=== PATIENT | male | born 1930 | race Caucasian/White ===

== ENCOUNTER → 2016-08-26 | Outpatient (CLI) | payer OTHER ==
[~2016-08-26] MED LIST: AMLO5TAB2 PO; ASPI325T25 PO; ATOR20TA PO; CARV6.2551 PO; DILT120C65 PO; HYDR-2652 PO; OMEP20CA5 PO
[2016-08-26 12:13] LABS: Albumin 3.9 g/dL (3.4-5.0); BUN/Creatinine Ratio 12.1; Calcium 9.4 mg/dL (8.5-10.1); Phosphorus 3.4 mg/dL (2.5-4.90); Potassium 4.9 mmol/L (3.5-5.1); Uric Acid 6.7 mg/dL (3.5-7.2)
[2016-08-26 12:24] LABS: Basophils # (auto) 0.1 uL; Basophils % (auto) 1.3 % (0.0-2.0); Eosinophils # (auto) 0.3 uL; Eosinophils % (auto) 6.2 % (0.0-7.0); Hemoglobin 9.7 g/dL (13.5-17.5); Lymphocytes # (auto) 1.4 uL; Lymphocytes % (auto) 28.3 % (10.0-50.0); Mean Corpuscular Hemoglobin 30.9 pg (28.0-32.0); Mean Corpuscular Hgb Conc. 33.4 g/dL (32.0-36.0); Mean Corpuscular Volume 92.6 fL (80.0-100.0); Mean Platelet Volume 8.2 fL (7.4-10.4); Monocytes # (auto) 0.5 uL; Monocytes % (auto) 10.7 % (0.0-12.0); Neutrophils # (auto) 2.6 uL; Neutrophils % (auto) 53.5 % (37.0-80.0); Platelet Count (auto) 252 10^3/uL (140-450); White Blood Cell 4.8 10^3/uL (4.4-10.8)
[2016-08-26 12:27] LABS: Urine Protein/Creatinine Ratio 2.11
[2016-08-26 13:08] LABS: Urine Bilirubin Negative (Negative); Urine Blood Negative /uL (Negative); Urine Color Yellow (Yellow); Urine Glucose Normal (Normal); Urine Ketone Negative (Negative); Urine Nitrite Negative (Negative); Urine RBC <1 /hpf (0 - 3); Urine Squamous Epithelial Cell FEW /hpf (<5); Urine Urobilinogen Normal (Negative)
== END | disposition home or self-care (01) ==
LOC: LAB 11:22
PROVIDERS: ATTEND Internal Medicine Nephrology
DX: N18.3 Chronic kidney disease, stage 3 (moderate) (principal); D63.1 Anemia in chronic kidney disease; E43 Unspecified severe protein-calorie malnutrition; E78.5 Hyperlipidemia, unspecified; M10.9 Gout, unspecified; R80.9 Proteinuria, unspecified; E55.9 Vitamin D deficiency, unspecified
CPT/HCPCS: 36415; 80069; 81001; 82306; 82570; 83970; 84156; 84550; 85025

== ENCOUNTER → 2016-09-29 | Outpatient (CLI) | payer OTHER ==
[2016-09-29 07:56] LABS: Basophils # (auto) 0.1 uL; Basophils % (auto) 1.3 % (0.0-2.0); Eosinophils # (auto) 0.4 uL; Eosinophils % (auto) 8.5 % (0.0-7.0); Hematocrit 29.9 % (41.0-53.0); Hemoglobin 9.9 g/dL (13.5-17.5); Lymphocytes # (auto) 1.5 uL; Lymphocytes % (auto) 31.7 % (10.0-50.0); Mean Corpuscular Hemoglobin 30.8 pg (28.0-32.0); Mean Corpuscular Hgb Conc. 33.2 g/dL (32.0-36.0); Mean Corpuscular Volume 92.6 fL (80.0-100.0); Mean Platelet Volume 7.7 fL (7.4-10.4); Monocytes # (auto) 0.5 uL; Monocytes % (auto) 10.3 % (0.0-12.0); Neutrophils # (auto) 2.3 uL; Neutrophils % (auto) 48.2 % (37.0-80.0); Platelet Count (auto) 254 10^3/uL (140-450); Red Cell Distribution Width 15.1 % (11.6-16.0); White Blood Cell 4.7 10^3/uL (4.4-10.8)
[2016-09-29 08:16] LABS: Albumin 4.1 g/dL (3.4-5.0); BUN/Creatinine Ratio 13.7; Calcium 8.8 mg/dL (8.5-10.1); Phosphorus 3.5 mg/dL (2.5-4.90); Potassium 4.5 mmol/L (3.5-5.1)
[2016-09-29 08:28] LABS: Urine Bilirubin Negative (Negative); Urine Blood TRACE /uL (Negative); Urine Color Yellow (Yellow); Urine Glucose Normal (Normal); Urine Ketone Negative (Negative); Urine Nitrite Negative (Negative); Urine RBC 3 /hpf (0 - 3); Urine Squamous Epithelial Cell FEW /hpf (<5); Urine Urobilinogen Normal (Negative)
[2016-09-29 08:39] LABS: Urine Protein/Creatinine Ratio 2.02
== END | disposition home or self-care (01) ==
LOC: LAB 07:30
PROVIDERS: ATTEND Internal Medicine Nephrology
DX: N18.4 Chronic kidney disease, stage 4 (severe) (principal); D63.1 Anemia in chronic kidney disease; E21.3 Hyperparathyroidism, unspecified; E78.5 Hyperlipidemia, unspecified; M10.9 Gout, unspecified; R80.9 Proteinuria, unspecified; E55.9 Vitamin D deficiency, unspecified
CPT/HCPCS: 36415; 80069; 81001; 82306; 82570; 83970; 84156; 84550; 85025

== ENCOUNTER 2016-11-15 23:56 | Inpatient (IN) | payer OTHER ==
[~2016-11-15] VITALS: Ht 175.3 cm; Wt 79.3 kg
[~2016-11-15 23:56] MED LIST changes: -OMEP20CA5 PO; +OMEP20CA74 PO
[2016-11-16] VITALS (10 sets, daily range): BP systolic 70–164; BP diastolic 69–132
[2016-11-16 00:53] LABS: Basophils # (auto) 0.1 uL; Eosinophils # (auto) 0.3 uL; Eosinophils % (auto) 5.7 % (0.0-7.0); Hematocrit 26.6 % (41.0-53.0); Hemoglobin 8.8 g/dL (13.5-17.5); Lymphocytes % (auto) 17.3 % (10.0-50.0); Mean Corpuscular Hemoglobin 30.8 pg (28.0-32.0); Mean Corpuscular Hgb Conc. 33.1 g/dL (32.0-36.0); Mean Corpuscular Volume 93.1 fL (80.0-100.0); Mean Platelet Volume 7.6 fL (7.4-10.4); Monocytes # (auto) 0.4 uL; Monocytes % (auto) 7.8 % (0.0-12.0); Neutrophils # (auto) 3.8 uL; Neutrophils % (auto) 68.2 % (37.0-80.0); Platelet Count (auto) 191 10^3/uL (140-450); Red Cell Distribution Width 14.1 % (11.6-16.0); White Blood Cell 5.6 10^3/uL (4.4-10.8)
[2016-11-16 01:02] LABS: Albumin 3.3 g/dL (3.4-5.0); BUN/Creatinine Ratio 13.7; Calcium 8.2 mg/dL (8.5-10.1); Potassium 4.3 mmol/L (3.5-5.1)
[2016-11-16 01:12] LABS: Bilirubin, Total 0.2 mg/dL (0.2-1.0); Total Protein 6.9 g/dL (6.4-8.2)
[2016-11-16] MEDS ORDERED: MORPHINE SULFATE 4 MG/ML SYRG IV ONE (02:45)
[2016-11-16] MEDS ORDERED: ONDANSETRON HCL 4 MG/2 ML VIAL IV ONE (02:45)
[2016-11-16] MEDS ORDERED: CYCLOBENZAPRINE HCL 10 MG TAB PO ONE (03:45)
[2016-11-16] MEDS ORDERED: SODIUM CHLORIDE 0.9% 1,000 ML IV SCH (04:12)
[2016-11-16] MEDS ORDERED: MORPHINE SULF INJ 2 MG/ML SYRINGE 1ML IV PRN (04:15)
[2016-11-16] MEDS ORDERED: ONDANSETRON HCL 4 MG/2 ML VIAL IV PRN (04:15)
[2016-11-16] MEDS ORDERED: NITROGLYCERIN 0.4 MG SL TAB SL PRN (04:15)
[2016-11-16] MEDS: hydrALAZINE HCL 25 MG TAB PO SCH ×3 (07:08→21:54)
[2016-11-16] MEDS: MORPHINE SULF INJ 2 MG/ML SYRINGE 1ML IV PRN ×3 (07:09→22:39)
[2016-11-16] MEDS ORDERED: OMEPRAZOLE 20MG/10ML ORAL SUSP PO SCH (10:00)
[2016-11-16] MEDS: CARVEDILOL 3.125 MG TAB PO SCH ×2 (10:38→21:55)
[2016-11-16] MEDS: PANTOPRAZOLE 40 MG TAB PO SCH (10:38)
[2016-11-16] MEDS: amLODIPine BESYLATE 5 MG TAB PO SCH (10:38)
[2016-11-16] MEDS: ASPirin-EC 325mg tab PO SCH (10:39)
[2016-11-16] MEDS: DILTIAZEM HCL 120MG ER CAP PO SCH (10:39)
[2016-11-16] MEDS: ATORVASTATIN 20 MG TAB PO SCH (10:39)
[2016-11-16 13:47] LABS: INR 1.04 (0.9-1.15); Prothrombin Time 11.3 sec (9.37-12.3)
[2016-11-17] MEDS: SODIUM CHLORIDE 0.9% 1,000 ML IV SCH (04:12)
[2016-11-17 05:30] VITALS: BP 157/74
[2016-11-17 06:25] LABS: Basophils # (auto) 0 uL; Basophils % (auto) 0.6 % (0.0-2.0); Eosinophils # (auto) 0.5 uL; Hematocrit 32.3 % (41.0-53.0); Hemoglobin 10.9 g/dL (13.5-17.5); Lymphocytes # (auto) 0.6 uL; Lymphocytes % (auto) 7.4 % (10.0-50.0); Mean Corpuscular Hemoglobin 31.1 pg (28.0-32.0); Mean Corpuscular Hgb Conc. 33.7 g/dL (32.0-36.0); Mean Corpuscular Volume 92.3 fL (80.0-100.0); Mean Platelet Volume 8.5 fL (7.4-10.4); Monocytes # (auto) 0.6 uL; Monocytes % (auto) 6.9 % (0.0-12.0); Neutrophils # (auto) 6.4 uL; Neutrophils % (auto) 79.1 % (37.0-80.0); Platelet Count (auto) 181 10^3/uL (140-450); Red Cell Distribution Width 15.8 % (11.6-16.0)
[2016-11-17] MEDS: hydrALAZINE HCL 25 MG TAB PO SCH ×3 (06:25→22:02)
[2016-11-17 06:44] LABS: BUN/Creatinine Ratio 13.9; Calcium 8.5 mg/dL (8.5-10.1); Magnesium 2.1 mg/dL (1.6-2.6); Potassium 4.4 mmol/L (3.5-5.1)
[2016-11-17 09:00] VITALS: BP 165/89
[2016-11-17 09:06] LABS: Urine Bilirubin Negative (Negative); Urine Blood Negative /uL (Negative); Urine Color Yellow (Yellow); Urine Glucose Normal (Normal); Urine Ketone Negative (Negative); Urine Nitrite Negative (Negative); Urine RBC <1 /hpf (0 - 3); Urine Squamous Epithelial Cell FEW /hpf (<5); Urine Urobilinogen Normal (Negative)
[2016-11-17] MEDS: ASPirin-EC 325mg tab PO SCH (10:00)
[2016-11-17] MEDS: amLODIPine BESYLATE 5 MG TAB PO SCH (10:00)
[2016-11-17] MEDS: MORPHINE SULF INJ 2 MG/ML SYRINGE 1ML IV PRN (10:31)
[2016-11-17] MEDS: DILTIAZEM HCL 120MG ER CAP PO SCH (10:39)
[2016-11-17] MEDS: CARVEDILOL 3.125 MG TAB PO SCH ×2 (10:41→22:03)
[2016-11-17] MEDS: ATORVASTATIN 20 MG TAB PO SCH (10:43)
[2016-11-17] MEDS: PANTOPRAZOLE 40 MG TAB PO SCH (10:46)
[2016-11-17 13:00] VITALS: BP 149/78
[2016-11-17 17:00] VITALS: BP 148/77
[2016-11-17 20:00] VITALS: BP 143/82
[2016-11-17] MEDS: HYDROcodone-ACET 5/325MG TAB PO PRN (20:30)
[2016-11-17 22:00] VITALS: BP 143/82
[2016-11-18] MEDS: HYDROcodone-ACET 5/325MG TAB PO PRN (02:39)
[2016-11-18] MEDS: SODIUM CHLORIDE 0.9% 1,000 ML IV SCH ×2 (02:44→22:51)
[2016-11-18 05:30] VITALS: BP 129/63
[2016-11-18] MEDS: HYDROmorphone HCL 2 MG/ML VL IV PRN ×3 (05:35→22:51)
[2016-11-18] MEDS: hydrALAZINE HCL 25 MG TAB PO SCH ×3 (05:36→22:16)
[2016-11-18 06:25] LABS: Hematocrit 31.7 % (41.0-53.0); Hemoglobin 10.7 g/dL (13.5-17.5)
[2016-11-18] MEDS ORDERED: BUPIVACAINE 0.25% INJ 50ML VIAL ONE (06:48)
[2016-11-18] MEDS ORDERED: LIDOCAINE 1% HCL (LOCAL ANESTH.) INJ 20ML MDV ONE (06:48)
[2016-11-18] MEDS ORDERED: LIDOCAINE W/ EPINEPHRINE 1 % INJ 30ML ONE (06:48)
[2016-11-18] MEDS ORDERED: BUPIVACAINE W/ EPINEPH 0.25% INJ 50ML MDV ONE (06:48)
[2016-11-18] MEDS ORDERED: ceFAZolin 1GM/50ML D5W 100 ML IV ONE (06:53)
[2016-11-18 07:07] LABS: BUN/Creatinine Ratio 14.4; Calcium 8.6 mg/dL (8.5-10.1); Potassium 4.4 mmol/L (3.5-5.1)
[2016-11-18] MEDS ORDERED: fentaNYL CITRATE 100 MCG/2 ML VL ONE (07:57)
[2016-11-18] MEDS ORDERED: MIDAZOLAM HCL 1MG/1ML-2 ML VIAL ONE (07:57)
[2016-11-18] MEDS ORDERED: MEPERIDINE HCL (50 MG/ML) 1 ML VIAL ONE (07:57)
[2016-11-18] MEDS ORDERED: DEXAMETHASONE SOD PHOS 10MG/1ML VIAL INJ ONE (08:12)
[2016-11-18] MEDS ORDERED: PROPOFOL 10 MG/ML 20 ML IV ONE (08:22)
[2016-11-18] MEDS ORDERED: KETOROLAC TROMETH 30 MG/ML 1ML VIAL IV ONE (08:45)
[2016-11-18] MEDS ORDERED: HYDROmorphone HCL 2 MG/ML VL IV PRN (08:45)
[2016-11-18] MEDS ORDERED: ePHEDrine SULFATE 50 MG/ML AMP IV PRN (08:45)
[2016-11-18] MEDS ORDERED: LABETALOL HCL 5 MG/ML 4ML SYRINGE IV PRN (08:45)
[2016-11-18] MEDS ORDERED: ONDANSETRON HCL 4 MG/2 ML VIAL IV ONE (08:45)
[2016-11-18] MEDS ORDERED: MORPHINE SULF INJ 2 MG/ML SYRINGE 1ML IV PRN (08:45)
[2016-11-18] MEDS ORDERED: MIDAZOLAM HCL 1MG/1ML-2 ML VIAL IV PRN (08:45)
[2016-11-18 09:00] VITALS: BP 107/60
[2016-11-18] MEDS: ENOXAPARIN SOD 30 MG/0.3 ML SYRINGE SC SCH (10:00)
[2016-11-18] MEDS: ASPirin-EC 325mg tab PO SCH (10:00)
[2016-11-18] MEDS ORDERED: ceFAZolin 1GM/50ML D5W 50 ML IV SCH ×2 (12:00)
[2016-11-18] MEDS: ATORVASTATIN 20 MG TAB PO SCH (12:10)
[2016-11-18] MEDS: amLODIPine BESYLATE 5 MG TAB PO SCH (12:10)
[2016-11-18] MEDS: PANTOPRAZOLE 40 MG TAB PO SCH (12:10)
[2016-11-18] MEDS: ceFAZolin 1GM/50ML D5W 50 ML IV SCH ×2 (12:11→22:12)
[2016-11-18] MEDS: DILTIAZEM HCL 120MG ER CAP PO SCH (12:11)
[2016-11-18] MEDS: CARVEDILOL 3.125 MG TAB PO SCH ×2 (12:11→22:17)
[2016-11-18 13:00] VITALS: BP 133/65
[2016-11-18 22:00] VITALS: BP 140/79
[2016-11-19 05:00] VITALS: BP 150/82
[2016-11-19] MEDS: hydrALAZINE HCL 25 MG TAB PO SCH ×3 (05:37→22:06)
[2016-11-19] MEDS: HYDROcodone-ACET 5/325MG TAB PO PRN (05:38)
[2016-11-19 06:24] LABS: Basophils # (auto) 0 uL; Eosinophils # (auto) 0 uL; Hematocrit 30.6 % (41.0-53.0); Hemoglobin 10.8 g/dL (13.5-17.5); Lymphocytes # (auto) 0.3 uL; Lymphocytes % (auto) 3.1 % (10.0-50.0); Mean Corpuscular Hemoglobin 32.2 pg (28.0-32.0); Mean Corpuscular Hgb Conc. 35.1 g/dL (32.0-36.0); Mean Corpuscular Volume 91.8 fL (80.0-100.0); Mean Platelet Volume 8.3 fL (7.4-10.4); Monocytes # (auto) 0.4 uL; Monocytes % (auto) 4.1 % (0.0-12.0); Neutrophils # (auto) 10.2 uL; Neutrophils % (auto) 92.8 % (37.0-80.0); Platelet Count (auto) 200 10^3/uL (140-450); Red Cell Distribution Width 15.4 % (11.6-16.0); White Blood Cell 10.9 10^3/uL (4.4-10.8)
[2016-11-19 06:39] LABS: BUN/Creatinine Ratio 14.5; Calcium 8.9 mg/dL (8.5-10.1); Potassium 4.5 mmol/L (3.5-5.1)
[2016-11-19] MEDS ORDERED: SUCCINYLCHOLINE CHLORIDE 20 MG/ML 10ML VIAL IV ONE (07:55)
[2016-11-19 09:00] VITALS: BP_SYST 134; BP_SYST 140; BP_DIAS 67; BP_DIAS 76
[2016-11-19] MEDS: ceFAZolin 1GM/50ML D5W 50 ML IV SCH ×2 (09:25→22:06)
[2016-11-19] MEDS: ENOXAPARIN SOD 30 MG/0.3 ML SYRINGE SC SCH (09:26)
[2016-11-19] MEDS: DILTIAZEM HCL 120MG ER CAP PO SCH (09:26)
[2016-11-19] MEDS: ASPirin-EC 325mg tab PO SCH (09:26)
[2016-11-19] MEDS: ATORVASTATIN 20 MG TAB PO SCH (09:27)
[2016-11-19] MEDS: PANTOPRAZOLE 40 MG TAB PO SCH (09:27)
[2016-11-19] MEDS: amLODIPine BESYLATE 5 MG TAB PO SCH (09:27)
[2016-11-19] MEDS: CARVEDILOL 3.125 MG TAB PO SCH ×2 (09:28→22:07)
[2016-11-19 13:00] VITALS: BP 133/72
[2016-11-19] MEDS: HYDROmorphone HCL 2 MG/ML VL IV PRN (15:04)
[2016-11-19] MEDS: SODIUM CHLORIDE 0.9% 1,000 ML IV SCH (16:38)
[2016-11-19 20:00] VITALS: BP 139/73
[2016-11-19 22:00] VITALS: BP 139/73
[2016-11-20] VITALS (12 sets, daily range): BP systolic 118–145; BP diastolic 61–75
[2016-11-20] MEDS: HYDROcodone-ACET 5/325MG TAB PO PRN (06:14)
[2016-11-20] MEDS: hydrALAZINE HCL 25 MG TAB PO SCH ×4 (06:15→22:17)
[2016-11-20 06:21] LABS: Basophils # (auto) 0 uL; Eosinophils # (auto) 0 uL; Hematocrit 25.7 % (41.0-53.0); Hemoglobin 9.5 g/dL (13.5-17.5); Lymphocytes # (auto) 0.6 uL; Lymphocytes % (auto) 3.9 % (10.0-50.0); Mean Corpuscular Hemoglobin 33.8 pg (28.0-32.0); Mean Corpuscular Hgb Conc. 36.9 g/dL (32.0-36.0); Mean Corpuscular Volume 91.6 fL (80.0-100.0); Mean Platelet Volume 8.3 fL (7.4-10.4); Monocytes # (auto) 0.7 uL; Monocytes % (auto) 5.2 % (0.0-12.0); Neutrophils % (auto) 90.9 % (37.0-80.0); Platelet Count (auto) 190 10^3/uL (140-450); Red Cell Distribution Width 15.6 % (11.6-16.0); White Blood Cell 14.3 10^3/uL (4.4-10.8)
[2016-11-20 06:35] LABS: Potassium 4.6 mmol/L (3.5-5.1)
[2016-11-20] MEDS: ceFAZolin 1GM/50ML D5W 50 ML IV SCH ×2 (09:27→22:15)
[2016-11-20] MEDS: ASPirin-EC 325mg tab PO SCH (09:28)
[2016-11-20] MEDS: DILTIAZEM HCL 120MG ER CAP PO SCH (09:31)
[2016-11-20] MEDS: amLODIPine BESYLATE 5 MG TAB PO SCH (09:32)
[2016-11-20] MEDS: ATORVASTATIN 20 MG TAB PO SCH (09:34)
[2016-11-20] MEDS: CARVEDILOL 3.125 MG TAB PO SCH ×2 (09:34→22:19)
[2016-11-20] MEDS: PANTOPRAZOLE 40 MG TAB PO SCH (09:34)
[2016-11-20] MEDS: ENOXAPARIN SOD 30 MG/0.3 ML SYRINGE SC SCH (09:36)
[2016-11-20] MEDS: SODIUM CHLORIDE 0.9% 1,000 ML IV SCH (13:00)
[2016-11-20] MEDS: HYDROmorphone HCL 2 MG/ML VL IV PRN (14:26)
[2016-11-20] MEDS ORDERED: EPOETIN ALFA 4,000 UNIT/ML VL SC ONE (15:15)
[2016-11-20] MEDS ORDERED: DOCUSATE SOD 100 MG CAP PO ONE (15:30)
[2016-11-20] MEDS: ALBUTEROL SULF 2.5 MG/0.5ML(0.5%) NEB SOLN NEB SCH (20:19)
[2016-11-20] MEDS: DOCUSATE SOD 100 MG CAP PO SCH (22:17)
[2016-11-21] VITALS (12 sets, daily range): BP systolic 116–148; BP diastolic 59–75
[2016-11-21] MEDS: HYDROmorphone HCL 2 MG/ML VL IV PRN ×2 (03:51→15:09)
[2016-11-21] MEDS: hydrALAZINE HCL 25 MG TAB PO SCH ×3 (05:36→22:12)
[2016-11-21 06:42] LABS: Basophils # (auto) 0 uL; Eosinophils # (auto) 0 uL; Eosinophils % (auto) 0.3 % (0.0-7.0); Hemoglobin 9.3 g/dL (13.5-17.5); Lymphocytes # (auto) 1.1 uL; Lymphocytes % (auto) 10.5 % (10.0-50.0); Mean Corpuscular Hemoglobin 30.8 pg (28.0-32.0); Mean Corpuscular Hgb Conc. 33.1 g/dL (32.0-36.0); Mean Corpuscular Volume 93.1 fL (80.0-100.0); Mean Platelet Volume 8.6 fL (7.4-10.4); Monocytes # (auto) 0.8 uL; Monocytes % (auto) 7.5 % (0.0-12.0); Neutrophils # (auto) 8.4 uL; Neutrophils % (auto) 81.7 % (37.0-80.0); Platelet Count (auto) 191 10^3/uL (140-450); Red Cell Distribution Width 15.6 % (11.6-16.0); White Blood Cell 10.2 10^3/uL (4.4-10.8)
[2016-11-21] MEDS: ALBUTEROL SULF 2.5 MG/0.5ML(0.5%) NEB SOLN NEB SCH ×4 (06:53→19:55)
[2016-11-21 07:01] LABS: Potassium 4.7 mmol/L (3.5-5.1)
[2016-11-21 07:05] LABS: BUN/Creatinine Ratio 16.9; Calcium 8.1 mg/dL (8.5-10.1)
[2016-11-21] MEDS: SODIUM CHLORIDE 0.9% 1,000 ML IV SCH (07:55)
[2016-11-21] MEDS: ceFAZolin 1GM/50ML D5W 50 ML IV SCH ×2 (10:05→22:11)
[2016-11-21] MEDS: PANTOPRAZOLE 40 MG TAB PO SCH (10:06)
[2016-11-21] MEDS: ENOXAPARIN SOD 30 MG/0.3 ML SYRINGE SC SCH (10:06)
[2016-11-21] MEDS: ASPirin-EC 325mg tab PO SCH (10:06)
[2016-11-21] MEDS: DOCUSATE SOD 100 MG CAP PO SCH ×2 (10:06→22:11)
[2016-11-21] MEDS: ATORVASTATIN 20 MG TAB PO SCH (10:06)
[2016-11-21] MEDS: amLODIPine BESYLATE 5 MG TAB PO SCH (10:08)
[2016-11-21] MEDS: CARVEDILOL 3.125 MG TAB PO SCH ×2 (10:10→22:12)
[2016-11-21] MEDS: DILTIAZEM HCL 120MG ER CAP PO SCH (10:10)
[2016-11-22] MEDS: HYDROmorphone HCL 2 MG/ML VL IV PRN ×3 (01:18→15:51)
[2016-11-22 04:53] VITALS: BP 138/80
[2016-11-22] MEDS: hydrALAZINE HCL 25 MG TAB PO SCH ×3 (06:07→22:15)
[2016-11-22 06:11] LABS: Basophils # (auto) 0 uL; Basophils % (auto) 0.4 % (0.0-2.0); Eosinophils # (auto) 0.4 uL; Hematocrit 33.9 % (41.0-53.0); Hemoglobin 11.6 g/dL (13.5-17.5); Lymphocytes % (auto) 12.4 % (10.0-50.0); Mean Corpuscular Hemoglobin 31.5 pg (28.0-32.0); Mean Corpuscular Hgb Conc. 34.4 g/dL (32.0-36.0); Mean Corpuscular Volume 91.5 fL (80.0-100.0); Mean Platelet Volume 8.3 fL (7.4-10.4); Monocytes # (auto) 0.7 uL; Monocytes % (auto) 9.1 % (0.0-12.0); Neutrophils % (auto) 73.1 % (37.0-80.0); Platelet Count (auto) 212 10^3/uL (140-450); Red Cell Distribution Width 15.3 % (11.6-16.0); White Blood Cell 8.2 10^3/uL (4.4-10.8)
[2016-11-22] MEDS: ALBUTEROL SULF 2.5 MG/0.5ML(0.5%) NEB SOLN NEB SCH ×3 (06:45→19:30)
[2016-11-22 07:00] LABS: Calcium 8.3 mg/dL (8.5-10.1); Potassium 4.6 mmol/L (3.5-5.1)
[2016-11-22] MEDS: ENOXAPARIN SOD 30 MG/0.3 ML SYRINGE SC SCH (09:29)
[2016-11-22] MEDS: ceFAZolin 1GM/50ML D5W 50 ML IV SCH ×2 (09:29→22:15)
[2016-11-22] MEDS: DILTIAZEM HCL 120MG ER CAP PO SCH (09:30)
[2016-11-22] MEDS: amLODIPine BESYLATE 5 MG TAB PO SCH (09:30)
[2016-11-22] MEDS: DOCUSATE SOD 100 MG CAP PO SCH ×2 (09:31→22:15)
[2016-11-22] MEDS: ATORVASTATIN 20 MG TAB PO SCH (09:31)
[2016-11-22] MEDS: CARVEDILOL 3.125 MG TAB PO SCH ×2 (09:31→22:15)
[2016-11-22] MEDS: PANTOPRAZOLE 40 MG TAB PO SCH (09:31)
[2016-11-22] MEDS: ASPirin-EC 325mg tab PO SCH (09:32)
[2016-11-22 10:06] VITALS: BP 141/71
[2016-11-22 12:24] VITALS: BP 132/68
[2016-11-22 16:27] VITALS: BP 127/64
[2016-11-22] MEDS ORDERED: POLYETHYLENE GLYCOL 17GM PWDR PO ONE (16:30)
[2016-11-22] MEDS ORDERED: BISACODYL 5 MG EC TAB PO ONE (16:30)
[2016-11-23] VITALS (8 sets, daily range): BP systolic 126–147; BP diastolic 58–98
[2016-11-23] MEDS: ALBUTEROL SULF 2.5 MG/0.5ML(0.5%) NEB SOLN NEB SCH ×4 (06:12→20:01)
[2016-11-23] MEDS: hydrALAZINE HCL 25 MG TAB PO SCH ×3 (06:37→21:43)
[2016-11-23 08:43] LABS: Hematocrit 31.8 % (41.0-53.0); Hemoglobin 10.7 g/dL (13.5-17.5)
[2016-11-23 08:57] LABS: Potassium 4.5 mmol/L (3.5-5.1)
[2016-11-23 08:58] LABS: BUN/Creatinine Ratio 15.6; Calcium 8.2 mg/dL (8.5-10.1)
[2016-11-23] MEDS: HYDROmorphone HCL 2 MG/ML VL IV PRN (09:38)
[2016-11-23] MEDS: DOCUSATE SOD 100 MG CAP PO SCH ×2 (10:36→21:41)
[2016-11-23] MEDS: CARVEDILOL 3.125 MG TAB PO SCH ×2 (10:39→21:43)
[2016-11-23] MEDS: amLODIPine BESYLATE 5 MG TAB PO SCH (10:40)
[2016-11-23] MEDS: DILTIAZEM HCL 120MG ER CAP PO SCH (10:41)
[2016-11-23] MEDS: ATORVASTATIN 20 MG TAB PO SCH (10:42)
[2016-11-23] MEDS: PANTOPRAZOLE 40 MG TAB PO SCH (10:42)
[2016-11-23] MEDS: ENOXAPARIN SOD 30 MG/0.3 ML SYRINGE SC SCH (10:43)
[2016-11-23] MEDS: ceFAZolin 1GM/50ML D5W 50 ML IV SCH ×2 (10:44→21:41)
[2016-11-23] MEDS: ASPirin-EC 325mg tab PO SCH (10:53)
[2016-11-24 05:00] VITALS: BP 132/74
[2016-11-24] MEDS: hydrALAZINE HCL 25 MG TAB PO SCH ×2 (05:35→14:00)
[2016-11-24] MEDS: ALBUTEROL SULF 2.5 MG/0.5ML(0.5%) NEB SOLN NEB SCH ×3 (06:47→18:09)
[2016-11-24 08:00] VITALS: BP 133/71
[2016-11-24 08:54] VITALS: BP 133/71
[2016-11-24] MEDS: DILTIAZEM HCL 120MG ER CAP PO SCH (10:16)
[2016-11-24] MEDS: PANTOPRAZOLE 40 MG TAB PO SCH (10:16)
[2016-11-24] MEDS: amLODIPine BESYLATE 5 MG TAB PO SCH (10:17)
[2016-11-24] MEDS: CARVEDILOL 3.125 MG TAB PO SCH (10:18)
[2016-11-24] MEDS: ATORVASTATIN 20 MG TAB PO SCH (10:19)
[2016-11-24] MEDS: DOCUSATE SOD 100 MG CAP PO SCH (10:19)
[2016-11-24] MEDS: ASPirin-EC 325mg tab PO SCH (10:20)
[2016-11-24] MEDS: ceFAZolin 1GM/50ML D5W 50 ML IV SCH (10:21)
[2016-11-24] MEDS: ENOXAPARIN SOD 30 MG/0.3 ML SYRINGE SC SCH (10:22)
[2016-11-24] MEDS ORDERED: MILK OF MAGNESIA 30ML SUSP PO ONE (13:30)
[2016-11-24] MEDS ORDERED: BISACODYL 10 MG RECT SUPP PR ONE (13:30)
[2016-11-24 13:34] VITALS: BP 134/64
[2016-11-24 17:09] VITALS: BP 129/64
== END 2016-11-24 19:03 | DRG 470 ==
LOC: EDBD 23:56 → ER 23:56 → TELE 23:57 → TELE-WESTW 11-16 10:15 → WEST WING 11-22 17:30
PROVIDERS: ADMIT Emergency Medicine; ATTEND Family Medicine
PROC: 30233N1 Transfusion of Nonautologous Red Blood Cells into Peripheral Vein, Percutaneous Approach (ICD-10-PCS; principal; 2016-11-16)
PROC: 0SRS01A Replacement of Left Hip Joint, Femoral Surface with Metal Synthetic Substitute, Uncemented, Open Approach (ICD-10-PCS; 2016-11-18)
DX: S72.002A Fracture of unspecified part of neck of left femur, initial encounter for closed fracture (principal); N17.9 Acute kidney failure, unspecified; N18.4 Chronic kidney disease, stage 4 (severe); I12.9 Hypertensive chronic kidney disease with stage 1 through stage 4 chronic kidney disease, or unspecified chronic kidney disease; D63.8 Anemia in other chronic diseases classified elsewhere; K21.9 Gastro-esophageal reflux disease without esophagitis; E78.00 Pure hypercholesterolemia, unspecified; E78.5 Hyperlipidemia, unspecified; W01.0XXA Fall on same level from slipping, tripping and stumbling without subsequent striking against object, initial encounter; D63.1 Anemia in chronic kidney disease; Y99.8 Other external cause status; Z86.73 Personal history of transient ischemic attack (TIA), and cerebral infarction without residual deficits; Z82.49 Family history of ischemic heart disease and other diseases of the circulatory system; Z83.3 Family history of diabetes mellitus; Y93.89 Activity, other specified; Y92.89 Other specified places as the place of occurrence of the external cause
CPT/HCPCS: 36415; 70450; 71010; 73501; 73502; 73610; 80048; 80053; 81001; 83735; 84484; 85014; 85018; 85025; 85610; 86850; 86900; 86901; 86920; 87081; 93306; 94640; 96361; 96374; 96375; 97110; 97116; 97163; 97530; J0330; J0690; J1100; J2001; J2250; J2405; J2704; J3490

== ENCOUNTER → 2017-02-03 | Outpatient (CLI) | payer OTHER ==
[2017-02-03 08:31] LABS: Basophils # (auto) 0.1 uL; Basophils % (auto) 1.4 % (0.0-2.0); CONDITION Y; Eosinophils # (auto) 0.3 uL; Eosinophils % (auto) 5.6 % (0.0-7.0); Hematocrit 29.4 % (41.0-53.0); Hemoglobin 9.8 g/dL (13.5-17.5); Lymphocytes # (auto) 1.8 uL; Lymphocytes % (auto) 34.2 % (10.0-50.0); Mean Corpuscular Hemoglobin 30.8 pg (28.0-32.0); Mean Corpuscular Hgb Conc. 33.5 g/dL (32.0-36.0); Mean Platelet Volume 7.7 fL (7.4-10.4); Monocytes # (auto) 0.5 uL; Monocytes % (auto) 10.2 % (0.0-12.0); Neutrophils # (auto) 2.5 uL; Neutrophils % (auto) 48.6 % (37.0-80.0); Platelet Count (auto) 279 10^3/uL (140-450); Red Cell Distribution Width 17.3 % (11.6-16.0); White Blood Cell 5.2 10^3/uL (4.4-10.8)
[2017-02-03 08:49] LABS: Urine Bilirubin Negative (Negative); Urine Blood Negative /uL (Negative); Urine Color Yellow (Yellow); Urine Glucose Normal (Normal); Urine Ketone Negative (Negative); Urine Nitrite Negative (Negative); Urine RBC <1 /hpf (0 - 3); Urine Urobilinogen Normal (Negative); Urine pH 6.5 (5.0-8.0)
[2017-02-03 09:10] LABS: Albumin 3.7 g/dL (3.4-5.0); BUN/Creatinine Ratio 13.3; Calcium 8.8 mg/dL (8.5-10.1); Phosphorus 3.2 mg/dL (2.5-4.90); Potassium 4.6 mmol/L (3.5-5.1); Uric Acid 6.8 mg/dL (3.5-7.2); Urine Protein/Creatinine Ratio 1.93
== END | disposition home or self-care (01) ==
LOC: LAB 07:46
PROVIDERS: ATTEND Internal Medicine Nephrology
DX: E55.9 Vitamin D deficiency, unspecified (principal); R80.9 Proteinuria, unspecified
CPT/HCPCS: 36415; 80061; 80069; 81001; 82306; 82570; 83970; 84156; 84550; 85025

== ENCOUNTER → 2017-03-02 | Outpatient (CLI) | payer OTHER ==
[2017-03-02 12:19] LABS: Urine RBC None Seen /hpf (0 - 3)
[2017-03-02 12:54] LABS: Urine Protein/Creatinine Ratio 1.76
[2017-03-02 13:01] LABS: Urine Bilirubin Negative (Negative); Urine Blood Negative /uL (Negative); Urine Color Yellow (Yellow); Urine Glucose Normal (Normal); Urine Ketone Negative (Negative); Urine Nitrite Negative (Negative); Urine Squamous Epithelial Cell FEW /hpf (<5); Urine Urobilinogen Normal (Negative)
[2017-03-02 13:07] LABS: Basophils # (auto) 0.1 uL; Basophils % (auto) 1.9 % (0.0-2.0); CONDITION Y; Eosinophils # (auto) 0.3 uL; Eosinophils % (auto) 6.3 % (0.0-7.0); Hemoglobin 9.2 g/dL (13.5-17.5); Lymphocytes # (auto) 1.4 uL; Lymphocytes % (auto) 28.2 % (10.0-50.0); Mean Corpuscular Hemoglobin 31.6 pg (28.0-32.0); Mean Corpuscular Hgb Conc. 34.1 g/dL (32.0-36.0); Mean Corpuscular Volume 92.7 fL (80.0-100.0); Mean Platelet Volume 8.2 fL (7.4-10.4); Monocytes # (auto) 0.5 uL; Monocytes % (auto) 10.3 % (0.0-12.0); Neutrophils # (auto) 2.6 uL; Neutrophils % (auto) 53.3 % (37.0-80.0); Platelet Count (auto) 243 10^3/uL (140-450); Red Cell Distribution Width 17.6 % (11.6-16.0); White Blood Cell 4.9 10^3/uL (4.4-10.8)
[2017-03-02 13:27] LABS: Albumin 3.8 g/dL (3.4-5.0); BUN/Creatinine Ratio 13.6; Phosphorus 3.3 mg/dL (2.5-4.90); Potassium 4.7 mmol/L (3.5-5.1); Uric Acid 7.4 mg/dL (3.5-7.2)
== END | disposition home or self-care (01) ==
LOC: LAB 11:42
PROVIDERS: ATTEND Internal Medicine Nephrology
DX: E78.5 Hyperlipidemia, unspecified (principal); I12.9 Hypertensive chronic kidney disease with stage 1 through stage 4 chronic kidney disease, or unspecified chronic kidney disease; N18.4 Chronic kidney disease, stage 4 (severe); D63.1 Anemia in chronic kidney disease; E21.3 Hyperparathyroidism, unspecified; M10.9 Gout, unspecified; E55.9 Vitamin D deficiency, unspecified; R80.9 Proteinuria, unspecified
CPT/HCPCS: 36415; 80069; 81001; 82306; 82570; 83970; 84156; 84550; 85025

== ENCOUNTER → 2017-05-06 | Outpatient (CLI) | payer OTHER ==
[~2017-05-06] MED LIST changes: -HYDR-2652 PO; +HYDR50TA15 PO
[2017-05-06 08:34] LABS: Urine Bacteria NONE SEEN /hpf (None Seen); Urine Blood Negative /uL (Negative); Urine Specific Gravity 1.012 (1.001-1.035); Urine WBC <1 /hpf (0 - 3)
[2017-05-06 08:38] LABS: Basophils # (auto) 0.1 uL; Basophils % (auto) 2.3 % (0.0-2.0); Eosinophils # (auto) 0.4 uL; Eosinophils % (auto) 7.8 % (0.0-7.0); Hematocrit 29.2 % (41.0-53.0); Hemoglobin 10.1 g/dL (13.5-17.5); Lymphocytes # (auto) 1.8 uL; Lymphocytes % (auto) 31.3 % (10.0-50.0); Mean Corpuscular Hgb Conc. 34.5 g/dL (32.0-36.0); Mean Corpuscular Volume 95.5 fL (80.0-100.0); Monocytes # (auto) 0.5 uL; Monocytes % (auto) 8.8 % (0.0-12.0); Neutrophils # (auto) 2.8 uL; Neutrophils % (auto) 49.8 % (37.0-80.0); Nucleated Red Blood Cells % 0.1 %; Platelet Count (auto) 208 10^3/uL (140-450); Red Blood Cells 3.06 10^6/uL (4.5-5.90); Red Cell Distribution Width 14.3 % (11.8-14.3); White Blood Cell 5.6 10^3/uL (4.4-10.8)
[2017-05-06 08:44] LABS: Protein, Urine 196.3 mg/dL (0.0-11.9)
[2017-05-06 09:08] LABS: Albumin 4.2 g/dL (3.4-5.0); BUN/Creatinine Ratio 14.1; Phosphorus 3.6 mg/dL (2.5-4.90); Potassium 4.7 mmol/L (3.5-5.1); Uric Acid 7.1 mg/dL (3.5-7.2)
== END | disposition home or self-care (01) ==
LOC: LAB 07:49
PROVIDERS: ATTEND Internal Medicine Nephrology
DX: I12.9 Hypertensive chronic kidney disease with stage 1 through stage 4 chronic kidney disease, or unspecified chronic kidney disease (principal); N18.4 Chronic kidney disease, stage 4 (severe); D63.1 Anemia in chronic kidney disease; E21.3 Hyperparathyroidism, unspecified; E78.5 Hyperlipidemia, unspecified; M10.9 Gout, unspecified; R80.9 Proteinuria, unspecified; E55.9 Vitamin D deficiency, unspecified; B17.9 Acute viral hepatitis, unspecified
CPT/HCPCS: 36415; 80069; 81001; 82306; 82570; 83970; 84156; 84550; 85025

== ENCOUNTER → 2017-06-16 | Outpatient (CLI) | payer OTHER ==
[~2017-06-16] MED LIST changes: -AMLO5TAB2 PO; -ASPI325T25 PO; -CARV6.2551 PO; +CLON0.2T PO; -DILT120C65 PO; +DILT180C52 PO; -HYDR50TA15 PO
[2017-06-16 10:21] LABS: Hepatitis B Surface Antibody Negative
[2017-06-16 10:30] LABS: Hepatitis B Surface Antigen Negative (Negative)
[2017-06-16 10:58] LABS: Hepatitis A Total Antibody Positive; Hepatitis C Antibody Negative (Negative)
[2017-06-16 10:59] LABS: Hepatitis B Core Total AB Negative
== END | disposition home or self-care (01) ==
LOC: LAB 09:11
PROVIDERS: ATTEND Internal Medicine Nephrology
DX: B17.9 Acute viral hepatitis, unspecified (principal)
CPT/HCPCS: 36415; 86704; 86706; 86708; 86803; 87340

== ENCOUNTER → 2017-07-01 | Outpatient (CLI) | payer OTHER ==
[2017-07-01 12:21] LABS: Urine Bacteria FEW /hpf (None Seen); Urine Blood TRACE /uL (Negative); Urine Mucus FEW (None Seen); Urine Specific Gravity 1.017 (1.001-1.035); Urine WBC 3 /hpf (0 - 3)
[2017-07-01 12:25] LABS: Basophils # (auto) 0.1 uL; Basophils % (auto) 2.6 % (0.0-2.0); Eosinophils # (auto) 0.3 uL; Eosinophils % (auto) 5.5 % (0.0-7.0); Hemoglobin 9.6 g/dL (13.5-17.5); Lymphocytes # (auto) 1.3 uL; Lymphocytes % (auto) 27.3 % (10.0-50.0); Mean Corpuscular Hemoglobin 31.9 pg (28.0-32.0); Mean Corpuscular Hgb Conc. 33.1 g/dL (32.0-36.0); Mean Corpuscular Volume 96.6 fL (80.0-100.0); Monocytes # (auto) 0.4 uL; Monocytes % (auto) 8.3 % (0.0-12.0); Neutrophils # (auto) 2.7 uL; Neutrophils % (auto) 56.3 % (37.0-80.0); Platelet Count (auto) 234 10^3/uL (140-450); Red Cell Distribution Width 14.4 % (11.8-14.3); White Blood Cell 4.8 10^3/uL (4.4-10.8)
[2017-07-01 12:33] LABS: Protein, Urine 556.5 mg/dL (0.0-11.9)
[2017-07-01 12:37] LABS: Albumin 4.1 g/dL (3.4-5.0); Calcium 8.6 mg/dL (8.5-10.1); Phosphorus 4.3 mg/dL (2.5-4.90); Potassium 4.4 mmol/L (3.5-5.1); Uric Acid 6.7 mg/dL (3.5-7.2)
== END | disposition home or self-care (01) ==
LOC: LAB 11:40
PROVIDERS: ATTEND Internal Medicine Nephrology
DX: N18.4 Chronic kidney disease, stage 4 (severe) (principal); E21.3 Hyperparathyroidism, unspecified; D63.1 Anemia in chronic kidney disease; E78.5 Hyperlipidemia, unspecified; M10.9 Gout, unspecified; E55.9 Vitamin D deficiency, unspecified; R80.9 Proteinuria, unspecified
CPT/HCPCS: 36415; 80069; 81001; 82306; 82570; 83970; 84156; 84550; 85025

== ENCOUNTER 2017-07-07 12:07 | Inpatient (IN) | payer OTHER ==
[~2017-07-07] VITALS: Ht 175.3 cm; Wt 66.8 kg
[2017-07-07 14:01] LABS: Basophils # (auto) 0.2 uL; Basophils % (auto) 4.6 % (0.0-2.0); Eosinophils # (auto) 0.2 uL; Eosinophils % (auto) 6.4 % (0.0-7.0); Hematocrit 25.5 % (41.0-53.0); Hemoglobin 8.5 g/dL (13.5-17.5); Lymphocytes % (auto) 30.6 % (10.0-50.0); Mean Corpuscular Hemoglobin 32.3 pg (28.0-32.0); Mean Corpuscular Hgb Conc. 33.6 g/dL (32.0-36.0); Mean Corpuscular Volume 96.3 fL (80.0-100.0); Monocytes # (auto) 0.3 uL; Monocytes % (auto) 9.2 % (0.0-12.0); Neutrophils # (auto) 1.6 uL; Neutrophils % (auto) 49.2 % (37.0-80.0); Platelet Count (auto) 181 10^3/uL (140-450); Red Blood Cells 2.64 10^6/uL (4.5-5.90); Red Cell Distribution Width 14.5 % (11.8-14.3); White Blood Cell 3.3 10^3/uL (4.4-10.8)
[2017-07-07 14:16] LABS: Albumin 3.6 g/dL (3.4-5.0); BUN/Creatinine Ratio 12.6; Bilirubin, Total 0.6 mg/dL (0.2-1.0); Calcium 8.2 mg/dL (8.5-10.1); Potassium 4.5 mmol/L (3.5-5.1); Total Protein 7.2 g/dL (6.4-8.2)
[2017-07-07 14:36] LABS: INR 1.05 (0.9-1.15); Partial Thromboplastin Time 29.5 sec (22.64-33.71); Prothrombin Time 11.5 sec (9.37-12.3)
[2017-07-07] MEDS ORDERED: LORazepam 0.5 MG TAB PO PRN (16:00)
[2017-07-07] MEDS ORDERED: PROMETHAZINE HCL 25 MG/ML 1ML IV PRN (16:00)
[2017-07-07] MEDS ORDERED: TEMAZEPAM 15 MG CAP PO PRN (16:00)
[2017-07-07] MEDS ORDERED: ACETAMINOPHEN 500 MG TAB PO PRN (16:00)
[2017-07-07] MEDS ORDERED: HYDROcodone-ACET 5/325MG TAB PO PRN (16:00)
[2017-07-07] MEDS ORDERED: MORPHINE SULF INJ 2 MG/ML SYRINGE 1ML IV PRN ×2 (16:00)
[2017-07-07] MEDS ORDERED: NITROGLYCERIN 0.4 MG SL TAB SL PRN (16:00)
[2017-07-07] MEDS ORDERED: cloNIDine HCL 0.1 MG TAB PO PRN (16:30)
[2017-07-07] MEDS ORDERED: PANTOPRAZOLE 40 MG TAB PO ONE (16:30)
[2017-07-07] MEDS: FUROSEMIDE 40 MG/4 ML VIAL IV SCH (17:12)
[2017-07-07] MEDS ORDERED: hydrALAZINE HCL 20 MG/ML VL IV PRN (19:15)
[2017-07-07] MEDS ORDERED: hydrALAZINE HCL 20 MG/ML VL IV ONE (19:15)
[2017-07-07 20:10] LABS: Carcinoembryonic Antigen 2.15 ng/mL (<5.0 OR =)
[2017-07-07 20:11] LABS: Folate (Folic Acid) > 24.00 ng/mL (5.38-24)
[2017-07-07] MEDS: cloNIDine HCL 0.1 MG TAB PO PRN (20:24)
[2017-07-07] MEDS: SODIUM CHLOR 0.9% PF (SALINE LOCK) 10ML VIAL IV SCH (21:47)
[2017-07-07] MEDS: CARVEDILOL 3.125 MG TAB PO SCH (21:47)
[2017-07-07] MEDS: ATORVASTATIN 20 MG TAB PO SCH (21:47)
[2017-07-07 23:06] VITALS: BP 153/75
[2017-07-07 23:26] VITALS: BP 153/75
[2017-07-07] MEDS: hydrALAZINE HCL 10 MG TAB PO SCH (23:39)
[2017-07-08 00:51] LABS: Hemoglobin 8.2 g/dL (13.5-17.5)
[2017-07-08 05:00] VITALS: BP 163/79
[2017-07-08] MEDS: hydrALAZINE HCL 10 MG TAB PO SCH ×4 (06:05→23:48)
[2017-07-08] MEDS: FUROSEMIDE 40 MG/4 ML VIAL IV SCH ×2 (06:05→17:42)
[2017-07-08] MEDS: SODIUM CHLOR 0.9% PF (SALINE LOCK) 10ML VIAL IV SCH ×3 (06:05→21:02)
[2017-07-08 06:50] LABS: Basophils # (auto) 0.1 uL; Eosinophils # (auto) 0.4 uL; Hematocrit 24.4 % (41.0-53.0); Hemoglobin 8.3 g/dL (13.5-17.5); Platelet Count (auto) 171 10^3/uL (140-450); Red Blood Cells 2.56 10^6/uL (4.5-5.90)
[2017-07-08 06:52] LABS: Basophils % (auto) 2.7 % (0.0-2.0); Eosinophils % (auto) 9.8 % (0.0-7.0); Lymphocytes % (auto) 27.3 % (10.0-50.0); Mean Corpuscular Hemoglobin 32.4 pg (28.0-32.0); Mean Corpuscular Hgb Conc. 33.9 g/dL (32.0-36.0); Mean Corpuscular Volume 95.4 fL (80.0-100.0); Monocytes # (auto) 0.5 uL; Monocytes % (auto) 12.4 % (0.0-12.0); Neutrophils # (auto) 1.7 uL; Neutrophils % (auto) 47.8 % (37.0-80.0); Red Cell Distribution Width 14.1 % (11.8-14.3); White Blood Cell 3.6 10^3/uL (4.4-10.8)
[2017-07-08 07:04] LABS: Albumin 3.3 g/dL (3.4-5.0); BUN/Creatinine Ratio 12.7; Bilirubin, Total 0.5 mg/dL (0.2-1.0); Calcium 8.2 mg/dL (8.5-10.1); Potassium 4.2 mmol/L (3.5-5.1); Total Protein 6.5 g/dL (6.4-8.2)
[2017-07-08 08:00] VITALS: BP 184/90
[2017-07-08 09:00] VITALS: BP 184/90
[2017-07-08] MEDS: PANTOPRAZOLE 40 MG TAB PO SCH (09:36)
[2017-07-08] MEDS: CARVEDILOL 3.125 MG TAB PO SCH ×2 (09:37→21:02)
[2017-07-08] MEDS: DILTIAZEM HCL 180MG ER CAP PO SCH (09:37)
[2017-07-08] MEDS: ENALAPRIL MALEATE 2.5 MG TAB PO SCH (09:38)
[2017-07-08] MEDS: NITROGLYCERIN 0.2MG/HR TOPICAL PATCH TD SCH (09:39)
[2017-07-08 12:01] LABS: Urine Bacteria FEW /hpf (None Seen); Urine Blood Negative /uL (Negative); Urine Specific Gravity 1.009 (1.001-1.035); Urine WBC <1 /hpf (0 - 3)
[2017-07-08 13:00] VITALS: BP 158/80
[2017-07-08 17:16] VITALS: BP 149/57
[2017-07-08] MEDS: ATORVASTATIN 20 MG TAB PO SCH (21:10)
[2017-07-08] MEDS: cloNIDine HCL 0.1 MG TAB PO PRN (21:11)
[2017-07-08 22:00] VITALS: BP 165/92
[2017-07-09 05:00] VITALS: BP 147/79
[2017-07-09] MEDS: SODIUM CHLOR 0.9% PF (SALINE LOCK) 10ML VIAL IV SCH ×2 (05:14→14:00)
[2017-07-09] MEDS: FUROSEMIDE 40 MG/4 ML VIAL IV SCH (05:20)
[2017-07-09] MEDS: hydrALAZINE HCL 10 MG TAB PO SCH ×2 (05:21→12:39)
[2017-07-09 08:00] VITALS: BP 157/87
[2017-07-09 09:00] VITALS: BP 157/83
[2017-07-09] MEDS: PANTOPRAZOLE 40 MG TAB PO SCH (09:32)
[2017-07-09] MEDS: DILTIAZEM HCL 180MG ER CAP PO SCH (09:32)
[2017-07-09] MEDS: ENALAPRIL MALEATE 2.5 MG TAB PO SCH (09:32)
[2017-07-09] MEDS: NITROGLYCERIN 0.2MG/HR TOPICAL PATCH TD SCH (09:32)
[2017-07-09] MEDS: CARVEDILOL 3.125 MG TAB PO SCH (09:33)
[2017-07-09 10:06] LABS: Basophils # (auto) 0.1 uL; Basophils % (auto) 2.1 % (0.0-2.0); Eosinophils # (auto) 0.3 uL; Eosinophils % (auto) 6.1 % (0.0-7.0); Hematocrit 26.7 % (41.0-53.0); Lymphocytes # (auto) 0.9 uL; Lymphocytes % (auto) 18.5 % (10.0-50.0); Mean Corpuscular Hgb Conc. 33.6 g/dL (32.0-36.0); Mean Corpuscular Volume 95.1 fL (80.0-100.0); Monocytes # (auto) 0.4 uL; Monocytes % (auto) 9.6 % (0.0-12.0); Neutrophils # (auto) 2.9 uL; Neutrophils % (auto) 63.7 % (37.0-80.0); Nucleated Red Blood Cells % 0.1 %; Platelet Count (auto) 186 10^3/uL (140-450); Red Blood Cells 2.81 10^6/uL (4.5-5.90); Red Cell Distribution Width 14.2 % (11.8-14.3); White Blood Cell 4.6 10^3/uL (4.4-10.8)
[2017-07-09 10:31] LABS: BUN/Creatinine Ratio 12.8; Calcium 8.5 mg/dL (8.5-10.1); Potassium 3.9 mmol/L (3.5-5.1)
[2017-07-09 11:41] VITALS: BP_SYST 143; BP_SYST 157; BP_DIAS 83; BP_DIAS 87
[2017-07-09 13:00] VITALS: BP 143/83
== END 2017-07-09 14:07 | disposition home or self-care (01) | DRG 70 ==
LOC: ER 12:07 → EDBD 12:07 → TELE 12:08 → TELE-WESTW 22:51
PROVIDERS: ADMIT Internal Medicine; ATTEND Family Medicine
DX: G93.41 Metabolic encephalopathy (principal); N18.6 End stage renal disease; I13.2 Hypertensive heart and chronic kidney disease with heart failure and with stage 5 chronic kidney disease, or end stage renal disease; G91.9 Hydrocephalus, unspecified; I12.0 Hypertensive chronic kidney disease with stage 5 chronic kidney disease or end stage renal disease; I50.33 Acute on chronic diastolic (congestive) heart failure; D63.8 Anemia in other chronic diseases classified elsewhere; E78.5 Hyperlipidemia, unspecified; F41.9 Anxiety disorder, unspecified; G47.00 Insomnia, unspecified; F03.90 Unspecified dementia, unspecified severity, without behavioral disturbance, psychotic disturbance, mood disturbance, and anxiety; Z96.642 Presence of left artificial hip joint; D72.819 Decreased white blood cell count, unspecified; K21.9 Gastro-esophageal reflux disease without esophagitis; R41.3 Other amnesia; M10.9 Gout, unspecified; Z82.49 Family history of ischemic heart disease and other diseases of the circulatory system; Z83.3 Family history of diabetes mellitus; Z86.61 Personal history of infections of the central nervous system; Z86.73 Personal history of transient ischemic attack (TIA), and cerebral infarction without residual deficits; Z99.2 Dependence on renal dialysis; Z79.899 Other long term (current) drug therapy; Z90.89 Acquired absence of other organs
CPT/HCPCS: 36415; 70450; 71045; 80048; 80053; 80061; 81001; 82378; 82550; 82607; 82746; 83605; 83735; 83880; 84443; 84484; 85014; 85018; 85025; 85045; 85610; 85730; 93005; 94761; 95819; 96374

== ENCOUNTER 2017-07-19 16:00 | Emergency (ER) | payer OTHER ==
[~2017-07-19] VITALS: Ht 175.3 cm; Wt 63.0 kg
[2017-07-19 16:00] VITALS: BP 124/77
== END 2017-07-19 16:34 | disposition left against medical advice (07) ==
LOC: ER 16:02
DX: I10 Essential (primary) hypertension (principal); Z53.29 Procedure and treatment not carried out because of patient's decision for other reasons

== ENCOUNTER 2017-12-10 16:26 | Inpatient (IN) | payer OTHER ==
[~2017-12-10] VITALS: Ht 175.3 cm; Wt 68.5 kg
[2017-12-10] MEDS ORDERED: SODIUM CHLORIDE 0.9% 1,000 ML IV ONE (16:54)
[2017-12-10] MEDS ORDERED: LORazepam 2MG/ML-1ML VIAL IV ONE (17:00)
[2017-12-10 18:24] LABS: Basophils # (auto) 0 uL; Basophils % (auto) 0.3 % (0.0-2.0); Eosinophils # (auto) 0.1 uL; Eosinophils % (auto) 1.6 % (0.0-7.0); Hematocrit 34.9 % (41.0-53.0); Hemoglobin 11.3 g/dL (13.5-17.5); Lymphocytes # (auto) 0.5 uL; Mean Corpuscular Hgb Conc. 32.3 g/dL (32.0-36.0); Mean Corpuscular Volume 96.1 fL (80.0-100.0); Monocytes # (auto) 0.5 uL; Monocytes % (auto) 5.9 % (0.0-12.0); Neutrophils # (auto) 6.9 uL; Neutrophils % (auto) 86.2 % (37.0-80.0); Platelet Count (auto) 226 10^3/uL (140-450); Red Blood Cells 3.63 10^6/uL (4.5-5.90); Red Cell Distribution Width 17.3 % (11.8-14.3); White Blood Cell 8.1 10^3/uL (4.4-10.8)
[2017-12-10 18:57] LABS: Alanine Aminotransferase 19 U/L (16-61); Albumin 3.3 g/dL (3.4-5.0); Alkaline Phosphatase 102 U/L (45-117); Anion Gap 14 (5-15); Aspartate Aminotransferase 15 U/L (15-37); BUN/Creatinine Ratio 6.8; Bilirubin, Total 0.5 mg/dL (0.2-1.0); Blood Urea Nitrogen 48 mg/dL (7-18); Calcium 8.8 mg/dL (8.5-10.1); Carbon Dioxide 22 mmol/L (21-32); Chloride 102 mmol/L (98-107); GFR African American 10 mL/min; GFR Non-African American 8 mL/min; Glucose 108 mg/dL (74-106); Magnesium 2.4 mg/dL (1.6-2.6); Potassium 4.2 mmol/L (3.5-5.1); Sodium 138 mmol/L (136-145); Total Protein 7.4 g/dL (6.4-8.2)
[2017-12-10] MEDS ORDERED: ACETAMINOPHEN 325 MG TAB PO PRN (22:30)
[2017-12-10] MEDS ORDERED: MORPHINE SULF(PF) 0.5MG/ML 10ML VIAL IV PRN (22:30)
[2017-12-10] MEDS ORDERED: NITROGLYCERIN 0.4 MG SL TAB SL PRN (22:30)
[2017-12-10] MEDS ORDERED: LORazepam 2MG/ML-1ML VIAL IV PRN (22:30)
[2017-12-10] MEDS ORDERED: ONDANSETRON HCL 4 MG/2 ML VIAL IV PRN (22:30)
[2017-12-10] MEDS ORDERED: cloNIDine HCL 0.1 MG TAB PO PRN (22:30)
[2017-12-10] MEDS ORDERED: HYDROcodone-ACET 5/325MG TAB PO PRN (22:30)
[2017-12-10] MEDS ORDERED: TEMAZEPAM 15 MG CAP PO PRN (22:30)
[2017-12-11] VITALS (8 sets, daily range): BP systolic 132–159; BP diastolic 75–86
[2017-12-11 02:38] LABS: Urine Bacteria FEW /hpf (None Seen); Urine Blood Negative /uL (Negative); Urine Mucus FEW (None Seen); Urine Specific Gravity 1.019 (1.001-1.035); Urine WBC 2 /hpf (0 - 3)
[2017-12-11 06:06] LABS: Basophils # (auto) 0 uL; Basophils % (auto) 0.6 % (0.0-2.0); Eosinophils # (auto) 0.1 uL; Eosinophils % (auto) 2.9 % (0.0-7.0); Hematocrit 27.3 % (41.0-53.0); Hemoglobin 9.3 g/dL (13.5-17.5); Lymphocytes # (auto) 0.8 uL; Lymphocytes % (auto) 17.7 % (10.0-50.0); Mean Corpuscular Hemoglobin 31.6 pg (28.0-32.0); Mean Corpuscular Hgb Conc. 34.1 g/dL (32.0-36.0); Mean Corpuscular Volume 92.5 fL (80.0-100.0); Monocytes # (auto) 0.5 uL; Monocytes % (auto) 10.7 % (0.0-12.0); Neutrophils # (auto) 3.2 uL; Neutrophils % (auto) 68.1 % (37.0-80.0); Platelet Count (auto) 206 10^3/uL (140-450); Red Blood Cells 2.96 10^6/uL (4.5-5.90); White Blood Cell 4.7 10^3/uL (4.4-10.8)
[2017-12-11 06:19] LABS: Albumin 2.6 g/dL (3.4-5.0); BUN/Creatinine Ratio 7.7; Calcium 7.7 mg/dL (8.5-10.1); Potassium 4.3 mmol/L (3.5-5.1)
[2017-12-11 06:22] LABS: Bilirubin, Total 0.5 mg/dL (0.2-1.0)
[2017-12-11] MEDS: PANTOPRAZOLE 40 MG TAB PO SCH (09:15)
[2017-12-11] MEDS: DILTIAZEM HCL 180MG ER CAP PO SCH (09:16)
[2017-12-11] MEDS ORDERED: PERITONEAL DIALYSIS 2.5% IP ONE (12:45)
[2017-12-11] MEDS: ATORVASTATIN 20 MG TAB PO SCH (21:59)
[2017-12-12 05:09] VITALS: BP 134/72
[2017-12-12 06:51] LABS: Basophils # (auto) 0 uL; Basophils % (auto) 0.6 % (0.0-2.0); Eosinophils # (auto) 0.4 uL; Eosinophils % (auto) 8.3 % (0.0-7.0); Hematocrit 27.1 % (41.0-53.0); Hemoglobin 9.3 g/dL (13.5-17.5); Lymphocytes % (auto) 21.7 % (10.0-50.0); Mean Corpuscular Hemoglobin 32.1 pg (28.0-32.0); Mean Corpuscular Hgb Conc. 34.5 g/dL (32.0-36.0); Mean Corpuscular Volume 93.1 fL (80.0-100.0); Monocytes # (auto) 0.5 uL; Monocytes % (auto) 11.2 % (0.0-12.0); Neutrophils # (auto) 2.7 uL; Neutrophils % (auto) 58.2 % (37.0-80.0); Platelet Count (auto) 198 10^3/uL (140-450); Red Blood Cells 2.91 10^6/uL (4.5-5.90); Red Cell Distribution Width 16.8 % (11.8-14.3); White Blood Cell 4.7 10^3/uL (4.4-10.8)
[2017-12-12 07:00] LABS: BUN/Creatinine Ratio 8.2; Calcium 7.9 mg/dL (8.5-10.1)
[2017-12-12 07:51] VITALS: BP 122/75
[2017-12-12 09:00] VITALS: BP 122/75
[2017-12-12] MEDS: PANTOPRAZOLE 40 MG TAB PO SCH (09:15)
[2017-12-12] MEDS: DILTIAZEM HCL 180MG ER CAP PO SCH (09:16)
[2017-12-12] MEDS: DOCUSATE SOD 100 MG CAP PO SCH ×2 (10:14→21:51)
[2017-12-12 13:00] VITALS: BP 146/76
[2017-12-12] MEDS ORDERED: PERITONEAL DIALYSIS 2.5% SOLN 2,000 ML IP ONE (15:00)
[2017-12-12 17:00] VITALS: BP 131/68
[2017-12-12] MEDS ORDERED: LORazepam 2MG/ML-1ML VIAL IV PRN (19:00)
[2017-12-12] MEDS: ATORVASTATIN 20 MG TAB PO SCH (21:51)
[2017-12-12] MEDS: LEVETIRACETAM 500 MG TAB PO SCH (21:51)
[2017-12-12 22:00] VITALS: BP 148/86
[2017-12-13 05:02] VITALS: BP 128/77
[2017-12-13 06:37] LABS: Basophils # (auto) 0.1 uL; Basophils % (auto) 1.1 % (0.0-2.0); Eosinophils # (auto) 0.4 uL; Eosinophils % (auto) 8.4 % (0.0-7.0); Hematocrit 26.5 % (41.0-53.0); Hemoglobin 9.1 g/dL (13.5-17.5); Lymphocytes # (auto) 1.2 uL; Lymphocytes % (auto) 26.3 % (10.0-50.0); Mean Corpuscular Hemoglobin 31.9 pg (28.0-32.0); Mean Corpuscular Hgb Conc. 34.5 g/dL (32.0-36.0); Mean Corpuscular Volume 92.3 fL (80.0-100.0); Monocytes # (auto) 0.6 uL; Monocytes % (auto) 12.4 % (0.0-12.0); Neutrophils # (auto) 2.4 uL; Neutrophils % (auto) 51.8 % (37.0-80.0); Nucleated Red Blood Cells % 0.1 %; Platelet Count (auto) 204 10^3/uL (140-450); Red Blood Cells 2.87 10^6/uL (4.5-5.90); Red Cell Distribution Width 16.7 % (11.8-14.3); White Blood Cell 4.6 10^3/uL (4.4-10.8)
[2017-12-13 06:54] LABS: BUN/Creatinine Ratio 8.3; Calcium 7.6 mg/dL (8.5-10.1); Potassium 3.8 mmol/L (3.5-5.1)
[2017-12-13] MEDS ORDERED: PERITONEAL DIALYSIS 2.5% SOLN 2,000 ML IP ONE (08:00)
[2017-12-13] MEDS: DOCUSATE SOD 100 MG CAP PO SCH (08:38)
[2017-12-13] MEDS: LEVETIRACETAM 500 MG TAB PO SCH (08:39)
[2017-12-13] MEDS: DILTIAZEM HCL 180MG ER CAP PO SCH (08:39)
[2017-12-13] MEDS: PANTOPRAZOLE 40 MG TAB PO SCH (08:39)
[2017-12-13 09:00] VITALS: BP 132/70
[2017-12-13 11:35] VITALS: BP 129/71
[2017-12-13 13:00] VITALS: BP 127/77
== END 2017-12-13 18:35 | disposition home or self-care (01) | DRG 100 ==
LOC: EDBD 16:26 → ER 16:26 → TELE 16:27 → TELE-CENTR 12-11 00:55
PROVIDERS: ADMIT Nurse Practitioner; ATTEND Internal Medicine
DX: G40.409 Other generalized epilepsy and epileptic syndromes, not intractable, without status epilepticus (principal); N18.6 End stage renal disease; G91.2 (Idiopathic) normal pressure hydrocephalus; I13.11 Hypertensive heart and chronic kidney disease without heart failure, with stage 5 chronic kidney disease, or end stage renal disease; K21.9 Gastro-esophageal reflux disease without esophagitis; M10.9 Gout, unspecified; E78.5 Hyperlipidemia, unspecified; F03.90 Unspecified dementia, unspecified severity, without behavioral disturbance, psychotic disturbance, mood disturbance, and anxiety; D63.1 Anemia in chronic kidney disease; Z99.2 Dependence on renal dialysis; Z82.49 Family history of ischemic heart disease and other diseases of the circulatory system; Z83.3 Family history of diabetes mellitus; Z79.899 Other long term (current) drug therapy; Z86.61 Personal history of infections of the central nervous system; Z86.73 Personal history of transient ischemic attack (TIA), and cerebral infarction without residual deficits; Z90.89 Acquired absence of other organs
CPT/HCPCS: 36415; 70450; 71045; 80048; 80053; 81001; 83735; 84443; 84484; 85025; 93005; 94761; 95819; 96360; 96374

== ENCOUNTER 2018-02-27 10:22 | Inpatient (IN) | payer OTHER ==
[~2018-02-27] VITALS: Ht 175.3 cm; Wt 66.2 kg
[2018-02-27] MEDS ORDERED: SODIUM CHLORIDE 0.9% 500 ML IV ONE (10:31)
[2018-02-27] MEDS ORDERED: ONDANSETRON HCL 4 MG/2 ML VIAL IV ONE (10:45)
[2018-02-27 11:33] LABS: Basophils # (auto) 0.1 uL; Basophils % (auto) 1.2 % (0.0-2.0); Eosinophils # (auto) 0.3 uL; Mean Corpuscular Hgb Conc. 33.4 g/dL (32.0-36.0); Monocytes # (auto) 0.7 uL; Neutrophils # (auto) 4.4 uL; Nucleated Red Blood Cells % 0.1 %
[2018-02-27 11:34] LABS: Hematocrit 43.6 % (41.0-53.0); Hemoglobin 14.6 g/dL (13.5-17.5); Lymphocytes # (auto) 0.9 uL; Lymphocytes % (auto) 13.3 % (10.0-50.0); Mean Corpuscular Hemoglobin 34.2 pg (28.0-32.0); Mean Corpuscular Volume 102.2 fL (80.0-100.0); Monocytes % (auto) 11.3 % (0.0-12.0); Neutrophils % (auto) 69.2 % (37.0-80.0); Platelet Count (auto) 196 10^3/uL (140-450); Red Blood Cells 4.26 10^6/uL (4.5-5.90); White Blood Cell 6.4 10^3/uL (4.4-10.8)
[2018-02-27 11:40] LABS: INR 0.93 (0.9-1.15); Partial Thromboplastin Time 28.2 sec (23.78-33.04)
[2018-02-27 11:51] LABS: Alanine Aminotransferase 15 U/L (16-61); Albumin 3.3 g/dL (3.4-5.0); Alkaline Phosphatase 106 U/L (45-117); Anion Gap 10 (5-15); Aspartate Aminotransferase 7 U/L (15-37); BUN/Creatinine Ratio 7.1; Bilirubin, Total 0.4 mg/dL (0.2-1.0); Blood Urea Nitrogen 46 mg/dL (7-18); Calcium 8.5 mg/dL (8.5-10.1); Carbon Dioxide 22 mmol/L (21-32); Chloride 105 mmol/L (98-107); GFR African American 11 mL/min; GFR Non-African American 9 mL/min; Glucose 90 mg/dL (74-106); Magnesium 2.3 mg/dL (1.6-2.6); Potassium 4.5 mmol/L (3.5-5.1); Sodium 137 mmol/L (136-145); Total Protein 7.5 g/dL (6.4-8.2)
[2018-02-27 12:18] LABS: Urine Bacteria NONE SEEN /hpf (None Seen); Urine Blood Negative /uL (Negative); Urine Specific Gravity 1.016 (1.001-1.035); Urine WBC 1 /hpf (0 - 3)
[2018-02-27] MEDS ORDERED: cloNIDine HCL 0.1 MG TAB PO PRN (15:15)
[2018-02-27] MEDS ORDERED: TEMAZEPAM 15 MG CAP PO PRN (15:15)
[2018-02-27] MEDS ORDERED: PANTOPRAZOLE 40 MG TAB PO ONE (15:15)
[2018-02-27] MEDS ORDERED: MORPHINE SULF INJ 2 MG/ML SYRINGE 1ML IV PRN ×2 (15:15)
[2018-02-27] MEDS ORDERED: NITROGLYCERIN 0.4 MG SL TAB SL PRN (15:15)
[2018-02-27] MEDS ORDERED: HYDROcodone-ACET 5/325MG TAB PO PRN (15:15)
[2018-02-27] MEDS ORDERED: ONDANSETRON HCL 4 MG/2 ML VIAL IV PRN (15:15)
[2018-02-27] MEDS ORDERED: ACETAMINOPHEN 325 MG TAB PO PRN (15:15)
[2018-02-27] MEDS ORDERED: DOCUSATE SOD 100 MG CAP PO PRN (15:15)
[2018-02-27] MEDS ORDERED: ASPirin-EC 81 mg tab PO ONE (15:15)
[2018-02-27] MEDS ORDERED: LORazepam 2MG/ML-1ML VIAL IV PRN (15:30)
[2018-02-27] MEDS ORDERED: FAMOTIDINE 20 MG TAB PO SCH ×2 (15:45→22:00)
[2018-02-27] MEDS: ENOXAPARIN SOD 30 MG/0.3 ML SYRINGE SC SCH (15:45)
[2018-02-27] MEDS ORDERED: ATORVASTATIN 20 MG TAB PO SCH (22:00)
[2018-02-27] MEDS: SODIUM CHLOR 0.9% PF (SALINE LOCK) 10ML VIAL/SYR IV SCH (22:08)
[2018-02-28 00:38] VITALS: BP 154/75
[2018-02-28] MEDS ORDERED: LEVE500T22 PO (01:25)
[2018-02-28] MEDS ORDERED: DOCU-94 PO (01:25)
[2018-02-28 05:00] VITALS: BP 135/62
[2018-02-28] MEDS: SODIUM CHLOR 0.9% PF (SALINE LOCK) 10ML VIAL/SYR IV SCH ×2 (05:58→12:55)
[2018-02-28 07:05] LABS: Basophils # (auto) 0.1 uL; Basophils % (auto) 1.3 % (0.0-2.0); Eosinophils # (auto) 0.3 uL; Lymphocytes # (auto) 0.7 uL; Neutrophils % (auto) 69.6 % (37.0-80.0); Red Cell Distribution Width 15.5 % (11.8-14.3)
[2018-02-28 07:08] LABS: Eosinophils % (auto) 5.2 % (0.0-7.0); Hematocrit 41.9 % (41.0-53.0); Hemoglobin 13.7 g/dL (13.5-17.5); Lymphocytes % (auto) 12.2 % (10.0-50.0); Mean Corpuscular Hemoglobin 34.5 pg (28.0-32.0); Mean Corpuscular Hgb Conc. 32.8 g/dL (32.0-36.0); Mean Corpuscular Volume 105.4 fL (80.0-100.0); Monocytes # (auto) 0.6 uL; Monocytes % (auto) 11.7 % (0.0-12.0); Neutrophils # (auto) 3.8 uL; Nucleated Red Blood Cells % 0.2 %; Platelet Count (auto) 179 10^3/uL (140-450); Red Blood Cells 3.98 10^6/uL (4.5-5.90); White Blood Cell 5.5 10^3/uL (4.4-10.8)
[2018-02-28 07:32] LABS: BUN/Creatinine Ratio 7.3; Bilirubin, Total 0.5 mg/dL (0.2-1.0); Potassium 4.5 mmol/L (3.5-5.1); Total Protein 6.9 g/dL (6.4-8.2)
[2018-02-28 09:03] VITALS: BP 147/75
[2018-02-28] MEDS: ENOXAPARIN SOD 30 MG/0.3 ML SYRINGE SC SCH (09:53)
[2018-02-28] MEDS ORDERED: DILTIAZEM HCL 180MG ER CAP PO SCH (10:00)
[2018-02-28] MEDS ORDERED: ASPirin-EC 81 mg tab PO SCH (10:00)
[2018-02-28] MEDS ORDERED: PANTOPRAZOLE 40 MG TAB PO SCH (10:00)
[2018-02-28] MEDS ORDERED: MULTIPLE VITAMIN TAB PO SCH (10:00)
[2018-02-28] MEDS ORDERED: ENOXAPARIN SOD 40 MG/0.4 ML SYRINGE SC SCH (10:00)
[2018-02-28 13:00] VITALS: BP 148/85
[2018-02-28 17:00] VITALS: BP 150/79
== END 2018-02-28 19:20 | disposition home or self-care (01) | DRG 69 ==
LOC: ER 10:22 → EDBD 10:22 → TELE 10:23 → TELE-CENTR 22:26
PROVIDERS: ADMIT Internal Medicine; ATTEND Family Medicine
DX: G45.9 Transient cerebral ischemic attack, unspecified (principal); N18.6 End stage renal disease; I13.11 Hypertensive heart and chronic kidney disease without heart failure, with stage 5 chronic kidney disease, or end stage renal disease; G91.2 (Idiopathic) normal pressure hydrocephalus; G81.91 Hemiplegia, unspecified affecting right dominant side; K21.9 Gastro-esophageal reflux disease without esophagitis; M10.9 Gout, unspecified; G40.409 Other generalized epilepsy and epileptic syndromes, not intractable, without status epilepticus; F03.90 Unspecified dementia, unspecified severity, without behavioral disturbance, psychotic disturbance, mood disturbance, and anxiety; R53.1 Weakness; E78.5 Hyperlipidemia, unspecified; R39.15 Urgency of urination; D64.9 Anemia, unspecified; Z82.49 Family history of ischemic heart disease and other diseases of the circulatory system; Z86.61 Personal history of infections of the central nervous system; Z83.3 Family history of diabetes mellitus; Z86.73 Personal history of transient ischemic attack (TIA), and cerebral infarction without residual deficits; Z99.2 Dependence on renal dialysis
CPT/HCPCS: 36415; 70450; 70551; 71045; 80053; 81001; 83735; 84484; 85025; 85610; 85730; 93005; 93306; 93886; 94761; 96361; 96372; 96374; 96375; J2405